=== PATIENT | female | born 2005 | race Caucasian/White ===

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

== ENCOUNTER 2024-01-03 23:11 | Emergency (ER) | payer OTHER ==
[~2024-01-03 23:11] MED LIST changes: +MAGN400S60 PO
== END 2024-01-04 00:01 | disposition left against medical advice (07) ==
LOC: MED 23:11
DX: R07.9 Chest pain, unspecified (principal); Z53.21 Procedure and treatment not carried out due to patient leaving prior to being seen by health care provider